=== PATIENT | male | born 1965 | race Caucasian/White ===

== ENCOUNTER 2018-07-08 13:51 | Day surgery (SDC) | payer OTHER, MEDICARE ==
[2018-07-05 08:41] LABS: BASOPHILS # (AUTO) 0.1 X10'3 (0-0.2); EOSINOPHILS # (AUTO) 0.2 X10'3 (0-0.9); EOSINOPHILS % (AUTO) 2.4 % (0-6); HEMATOCRIT 43.2 % (42.0-52.0); HEMOGLOBIN 14.8 g/dl (14.0-17.9); LYMPHOCYTES # (AUTO) 1.6 X10'3 (1.1-4.8); MEAN CORPUSCULAR HEMOGLOBIN 31.2 PG (27.0-31.0); MEAN CORPUSCULAR HGB CONC 34.3 g/dL (33.0-36.5); MEAN CORPUSCULAR VOLUME 91.1 FL (78-98); MEAN PLATELET VOLUME 6.6 FL (7.4-10.4); MONOCYTES # (AUTO) 0.6 X10'3 (0-0.9); NEUTROPHILS # (AUTO) 4.5 X10'3 (1.8-7.7); NEUTROPHILS % (AUTO) 65.6 % (42-75); PLATELET COUNT 191 X10'3 (140-440); RED BLOOD COUNT 4.74 X10'6 (4.70-6.10); RED CELL DISTRIBUTION WIDTH 13.8 % (11.5-14.5); WHITE BLOOD COUNT 6.9 X10'3 (4.5-11.0)
[2018-07-05 08:58] LABS: ALBUMIN 3.6 G/DL (3.4-5.0); ANION GAP 10 (8-16); BLOOD UREA NITROGEN 21 MG/DL (7-18); BUN/CREATININE RATIO 24.4 (5.4-32.0); CALCIUM 9.3 MG/DL (8.5-10.1); CHLORIDE 108 MMOL/L (99-107); CHOLESTEROL 100 MG/DL (0-200); CREATININE 0.86 MG/DL (0.60-1.10); GLUCOSE 109 MG/DL (70-104); HDL CHOLESTEROL 33 MG/DL (35-60); LDL CHOLESTEROL 56 MG/DL (50-100); PARTIAL THROMBOPLASTIN TIME 26 SECONDS (22-32); POTASSIUM 3.8 MMOL/L (3.5-5.1); SODIUM 143 MMOL/L (135-145); TOTAL CARBON DIOXIDE 24.8 MMOL/L (24-32); TRIGLYCERIDES 96 MG/DL (20-135); eGFR > 90 ML/MIN
[2018-07-08] VITALS (7 sets, daily range): BP systolic 125–136; BP diastolic 72–89
[~2018-07-08] VITALS: Ht 185.4 cm; Wt 135.9 kg
[2018-07-08] MEDS ORDERED: diphenhydrAMINE 25mg capsule PO ONE (14:25)
[2018-07-08] MEDS ORDERED: normal saline 1000ml 1,000 ML IV SCH (14:25)
[2018-07-08] MEDS ORDERED: LORazepam 0.5 MG tablet PO ONE (14:25)
[2018-07-08] MEDS ORDERED: ATOR40TA71 PO (18:31)
[2018-07-08] MEDS ORDERED: ASPI-1071 PO (18:31)
[2018-07-08] MEDS ORDERED: CHOL100046 PO (18:31)
[2018-07-08] MEDS ORDERED: LAMO200T2 PO (18:31)
[2018-07-08] MEDS ORDERED: OMEG-166 PO (18:31)
[2018-07-08] MEDS ORDERED: FLUO20CA22 PO (18:31)
[2018-07-08] MEDS ORDERED: ARIP20TA4 PO (18:43)
[2018-07-08] MEDS ORDERED: OMEP40CA37 PO (18:43)
[2018-07-08] MEDS ORDERED: SUCR1TAB PO (18:43)
[2018-07-08] MEDS ORDERED: LISI-604 PO (18:43)
[2018-07-08] MEDS ORDERED: TOPI25TA15 PO (18:43)
[2018-07-08] MEDS ORDERED: midazolam 2 mg/2 ml injection ONE (18:44)
[2018-07-08] MEDS ORDERED: iohexol 350MG/ML 100ml bottle IV ONE (18:45)
[2018-07-08] MEDS ORDERED: LIDOcaine 1% (10mg/ml)w/preservative injection 20ml MDV ONE (18:45)
[2018-07-08] MEDS ORDERED: fentaNYL/PF 50MCG/1 ML 2ML syringe ONE (18:45)
[2018-07-08] MEDS ORDERED: ondansetron/PF 4mg/2ml inj IV PRN (19:50)
[2018-07-08] MEDS ORDERED: HYDROcodone/acetaminophen 5mg/325mg tablet PO PRN (19:50)
[2018-07-08] MEDS ORDERED: OXAZEpam 15mg capsule PO PRN (19:50)
[2018-07-08] MEDS ORDERED: proCHLORperazine 10 MG/2 ml inj IV PRN (19:50)
[2018-07-08] MEDS ORDERED: HYDROcodone/acetaminophen 10/325mg tab PO PRN (19:50)
== END 2018-07-08 21:15 | disposition home or self-care (01) ==
LOC: SSTAY O 13:51
PROVIDERS: ATTEND Internal Medicine Interventional Cardiology
DX: I25.10 Atherosclerotic heart disease of native coronary artery without angina pectoris (principal); G47.33 Obstructive sleep apnea (adult) (pediatric); F31.9 Bipolar disorder, unspecified; I10 Essential (primary) hypertension
CPT/HCPCS: 36415; 80048; 80061; 85025; 85610; 85730; 93458; 99152; A6257; J1644; J2001; J2250; J3010; J7030; Q0163; Q9967; A4620; C1760; C1769

== ENCOUNTER 2019-08-27 09:37 | Emergency (ER) | payer OTHER, MEDICARE ==
[~2019-08-27] VITALS: Ht 185.4 cm; Wt 145.4 kg
[~2019-08-27 09:37] MED LIST: ARIP20TA4 PO; ASPI-1071 PO; ATOR40TA71 PO; CHOL100046 PO; FLUO-213 PO; LAMO200T2 PO; LISI-604 PO; OMEG-166 PO; OMEP40CA13 PO; SUCR1TAB PO; TOPI25TA15 PO
[2019-08-27 10:35] LABS: ALANINE AMINOTRANSFERASE 35 U/L (12-78); ALBUMIN 3.5 G/DL (3.4-5.0); ALKALINE PHOSPHATASE 125 IU/L (46-116); ANION GAP 8 (8-16); ASPARTATE AMINO TRANSFERASE 19 U/L (10-37); BILIRUBIN,TOTAL 0.5 MG/DL (0.1-1.0); BLOOD UREA NITROGEN 19 MG/DL (7-18); BUN/CREATININE RATIO 19.4 (5.4-32.0); CHLORIDE 110 MMOL/L (99-107); CREATININE 0.98 MG/DL (0.60-1.10); GLUCOSE 100 MG/DL (70-104); POTASSIUM 3.9 MMOL/L (3.5-5.1); SODIUM 144 MMOL/L (135-145); TOTAL CARBON DIOXIDE 26.2 MMOL/L (24-32); TOTAL PROTEIN 7.1 G/DL (6.4-8.2); eGFR 79 ML/MIN
[2019-08-27 11:18] LABS: BASOPHILS # (AUTO) 0.1 X10'3 (0-0.2); BASOPHILS % (AUTO) 0.8 % (0-1); EOSINOPHILS # (AUTO) 0.1 X10'3 (0-0.9); EOSINOPHILS % (AUTO) 2.2 % (0-6); HEMATOCRIT 42.1 % (42.0-52.0); HEMOGLOBIN 14.5 g/dl (14.0-17.9); LYMPHOCYTES # (AUTO) 2.1 X10'3 (1.1-4.8); LYMPHOCYTES % (AUTO) 34.3 % (21-51); MEAN CORPUSCULAR HEMOGLOBIN 31.7 PG (27.0-31.0); MEAN CORPUSCULAR HGB CONC 34.5 g/dL (33.0-36.5); MEAN CORPUSCULAR VOLUME 91.9 FL (78-98); MEAN PLATELET VOLUME 6.6 FL (7.4-10.4); MONOCYTES # (AUTO) 0.6 X10'3 (0-0.9); MONOCYTES % (AUTO) 9.3 % (2-12); NEUTROPHILS # (AUTO) 3.3 X10'3 (1.8-7.7); NEUTROPHILS % (AUTO) 53.4 % (42-75); PLATELET COUNT 195 X10'3 (140-440); RED BLOOD COUNT 4.58 X10'6 (4.70-6.10); RED CELL DISTRIBUTION WIDTH 14.1 % (11.5-14.5); WHITE BLOOD COUNT 6.1 X10'3 (4.5-11.0)
[2019-08-27 12:10] VITALS: BP 137/85
== END 2019-08-27 12:13 | disposition home or self-care (01) ==
LOC: ER 09:37
DX: R07.9 Chest pain, unspecified (principal); I10 Essential (primary) hypertension; F31.9 Bipolar disorder, unspecified; Z72.89 Other problems related to lifestyle; Z79.82 Long term (current) use of aspirin; Z79.899 Other long term (current) drug therapy
CPT/HCPCS: 36415; 71045; 80053; 83880; 84484; 85025; 85379; 93005; 99285

== ENCOUNTER 2020-04-05 01:46 | Observation (INO) | payer OTHER, MEDICARE ==
[~2020-04-05] VITALS: Ht 185.4 cm; Wt 136.4 kg
--- NOTE | 2020-04-05 02:02 | NUR ---
Stroke alert page sent out per MD order - pt stated to MD that headache was the worst he has ever felt in his life. Pt reports pain to be 8/10 and generalized all over his head.
[2020-04-05] MEDS ORDERED: ondansetron/PF 4mg/2ml inj IV ONE (02:15)
[2020-04-05 02:21] LABS: BASOPHILS # (AUTO) 0.1 X10'3 (0-0.2); BASOPHILS % (AUTO) 1.1 % (0-1); EOSINOPHILS # (AUTO) 0.2 X10'3 (0-0.9); EOSINOPHILS % (AUTO) 2.7 % (0-6); HEMATOCRIT 41.8 % (42.0-52.0); HEMOGLOBIN 14.5 g/dl (14.0-17.9); LYMPHOCYTES # (AUTO) 2.2 X10'3 (1.1-4.8); LYMPHOCYTES % (AUTO) 32.2 % (21-51); MEAN CORPUSCULAR HEMOGLOBIN 32.4 PG (27.0-31.0); MEAN CORPUSCULAR HGB CONC 34.6 g/dL (33.0-36.5); MEAN CORPUSCULAR VOLUME 93.5 FL (78-98); MEAN PLATELET VOLUME 6.6 FL (7.4-10.4); MONOCYTES # (AUTO) 0.6 X10'3 (0-0.9); MONOCYTES % (AUTO) 8.8 % (2-12); NEUTROPHILS # (AUTO) 3.7 X10'3 (1.8-7.7); NEUTROPHILS % (AUTO) 55.2 % (42-75); PLATELET COUNT 201 X10'3 (140-440); RED BLOOD COUNT 4.47 X10'6 (4.70-6.10); RED CELL DISTRIBUTION WIDTH 13.9 % (11.5-14.5); WHITE BLOOD COUNT 6.8 X10'3 (4.5-11.0)
[2020-04-05 02:39] LABS: ALANINE AMINOTRANSFERASE 33 U/L (12-78); ALBUMIN 3.6 G/DL (3.4-5.0); ALBUMIN/GLOBULIN RATIO 1.1 (1.1-1.5); ALKALINE PHOSPHATASE 112 IU/L (46-116); ANION GAP 6 (8-16); ASPARTATE AMINO TRANSFERASE 13 U/L (10-37); BILIRUBIN,TOTAL 0.3 MG/DL (0.1-1.0); BLOOD UREA NITROGEN 21 MG/DL (7-18); BUN/CREATININE RATIO 20.4 (5.4-32.0); CALCIUM 9.3 MG/DL (8.5-10.1); CHLORIDE 109 MMOL/L (99-107); CREATININE 1.03 MG/DL (0.60-1.10); GLUCOSE 99 MG/DL (70-104); PARTIAL THROMBOPLASTIN TIME 26 SECONDS (22-32); POTASSIUM 3.8 MMOL/L (3.5-5.1); SODIUM 141 MMOL/L (135-145); TOTAL CARBON DIOXIDE 25.9 MMOL/L (24-32); TOTAL PROTEIN 6.9 G/DL (6.4-8.2); eGFR 74 ML/MIN
[2020-04-05] MEDS ORDERED: magnesium 2GM in 50ml NS 50 ML IV PRN (03:10)
[2020-04-05] MEDS ORDERED: magnesium 4gm in 100ml NS 100 ML IV PRN (03:10)
[2020-04-05] MEDS ORDERED: potassium Cl 20 mEq SR tablet PO PRN ×2 (03:10)
[2020-04-05] MEDS ORDERED: potassium Cl 40MEQ/1/2NS 520ml 520 ML IV PRN ×2 (03:10)
[2020-04-05] MEDS ORDERED: ondansetron/PF 4mg/2ml inj IV PRN (03:10)
[2020-04-05] MEDS ORDERED: magnesium hydroxide 30ml (MOM) UD suspension PO PRN (03:10)
[2020-04-05] MEDS ORDERED: acetaminophen 325mg tablet PO PRN (03:10)
[2020-04-05] MEDS ORDERED: mag hydrox/Alum hydrox/simeth 30ml oral suspension PO PRN (03:10)
[2020-04-05] MEDS ORDERED: LAMO100T65 PO (03:23)
[2020-04-05] MEDS ORDERED: iohexol 350MG/ML 100ml bottle IV ONE ×3 (03:49→09:35)
[2020-04-05] MEDS: normal saline 1000ml 1,000 ML IV SCH ×3 (04:20→20:17)
--- NOTE | 2020-04-05 05:48 | NUR ---
Pt's cell # Ledy
[2020-04-05] MEDS ORDERED: aspirin 325mg tablet, delayed-release (Ecotrin) PO ONE (05:50)
[2020-04-05 07:46] LABS: CLARITY,URINE CLEAR (Clear); COLOR,URINE YELLOW (Yellow); GLUCOSE, URINE NEGATIVE (Neg); KETONES,URINE NEGATIVE (Neg); LEUKOCYTE ESTERASE ,URINE NEGATIVE (Neg); NITRITES, URINE NEGATIVE (Neg); OCCULT BLOOD,URINE NEGATIVE (Neg); PH,URINE 5.5 (4.8-8.0); PROTEIN,URINE NEGATIVE (Neg); UROBILINOGEN,URINE 0.2 E.U/dL (0.2-1.0)
[2020-04-05 07:51] LABS: UA COLLECTION TYPE CLN CATCH MIDSTREAM
[2020-04-05 07:55] LABS: CHOL/HDL RATIO 5.4 (0.00-4.99); CHOLESTEROL 177 MG/DL (0-200); HDL CHOLESTEROL 33 MG/DL (35-60); LDL CHOLESTEROL 121 MG/DL (50-100); TRIGLYCERIDES 204 MG/DL (20-135)
[2020-04-05] MEDS: aspirin 81mg tablet.DR PO SCH (08:00)
[2020-04-05] MEDS: K and/or MAG REPLACEMENT MC SCH ×2 (08:01→20:00)
--- NOTE | 2020-04-05 08:58 | NUR ---
DR RUSSELL AWARE THAT THE PATIENT WILL NOT FIT INTO THE MRI MACHINE ACCORDING TO STEREO COMPILER DIANA
--- NOTE | 2020-04-05 09:22 | NUR ---
pt ate his breakfast finished 100% and then went to restroom in wheelchair to defecate ,pt came back to bed laying in bed in rgt lat position and started vomiting undigested food total vol 300 ml,pt medicated with prn zofran 4 mg iv once. production gear cutter nahum at bedside to take the pt to cta ,disconnected the pt from maintence fluid.pt to ct scan now.
--- NOTE | 2020-04-05 09:50 | NUR ---
called dr barnett regarding pt covid test as yong joshua is concerned about the covid like symps ,as per dr barnett she is not authorized to test the pt tell rn to contact dr dwyer if they want to rule out .also contact stroke nurse .notified yong joshua .
--- NOTE | 2020-04-05 10:18 | NUR ---
contacted heather stroke nurse as per dr barnett orders.
[2020-04-05 10:55] VITALS: BP 136/86
[2020-04-05] MEDS ORDERED: TOPI25TA49 PO (10:55)
--- NOTE | 2020-04-05 11:36 | NUR ---
PAGER ID: [phone] MESSAGE: [id number] Rashoff Not appropriate, wont fit MRI but NEEDS ONE [phone]
--- NOTE | 2020-04-05 12:33 | NUR ---
PAGER ID: [phone] MESSAGE: [id number] Rashoff CTA report in computer, [facility] wants to speak with you personally
--- NOTE | 2020-04-05 14:22 | NUR ---
PAGER ID: [phone] MESSAGE: [id number] Rashoff speech remains slurred, actively vomiting & too early for Zofran. Option please [id number]
[2020-04-05] MEDS ORDERED: proCHLORperazine 10 MG/2 ml inj IV ONE (14:40)
[2020-04-05 15:10] VITALS: BP 150/82
[2020-04-05] MEDS: lisinopril 5mg tablet PO SCH (15:40)
--- NOTE | 2020-04-05 16:57 | NUR ---
Spoke with , feels patient does have mild slurring of words and some forgetfulness.
[2020-04-05] MEDS: sucralfate 1 gm tablet PO SCH ×2 (17:48→20:12)
[2020-04-05 18:00] VITALS: BP 138/80
--- NOTE | 2020-04-05 18:20 | NUR ---
Problems reprioritized. Patient report given, questions answered & plan of care reviewed with Aurelia Deleon
[2020-04-05] MEDS: LAMOTRIGINE 100 MG PO SCH (20:00)
[2020-04-05] MEDS: topiramate 25mg tablet PO SCH (20:12)
[2020-04-05] MEDS: meclizine 12.5mg tablet PO PRN (20:12)
[2020-04-05] MEDS ORDERED: lamoTRIgine 100mg tablet PO SCH (21:00)
[2020-04-05] MEDS ORDERED: aspirin 81mg tablet.DR PO SCH (21:00)
[2020-04-05] MEDS ORDERED: FLUoxetine 20mg capsule PO SCH (21:00)
[2020-04-05 22:00] VITALS: BP 140/88
[2020-04-06 02:00] VITALS: BP 130/78
[2020-04-06 06:00] VITALS: BP 132/88
--- NOTE | 2020-04-06 06:38 | NUR ---
Report given to Adrienne SEQUEIRA.
--- NOTE | 2020-04-06 06:41 | NUR ---
Patient in room PCU 3012A. I have received report from HUA RAMIRES and had the opportunity to ask questions and assume patient care.
[2020-04-06] MEDS ORDERED: pantoprazole 40mg Tablet.DR PO SCH (07:30)
[2020-04-06 07:54] LABS: ALANINE AMINOTRANSFERASE 32 U/L (12-78); ALBUMIN 3.3 G/DL (3.4-5.0); ALBUMIN/GLOBULIN RATIO 1.1 (1.1-1.5); ALKALINE PHOSPHATASE 89 IU/L (46-116); ANION GAP 9 (8-16); ASPARTATE AMINO TRANSFERASE 26 U/L (10-37); BILIRUBIN,TOTAL 0.7 MG/DL (0.1-1.0); BLOOD UREA NITROGEN 18 MG/DL (7-18); BUN/CREATININE RATIO 22.2 (5.4-32.0); CALCIUM 8.7 MG/DL (8.5-10.1); CHLORIDE 110 MMOL/L (99-107); CREATININE 0.81 MG/DL (0.60-1.10); GLUCOSE 97 MG/DL (70-104); POTASSIUM 3.9 MMOL/L (3.5-5.1); SODIUM 144 MMOL/L (135-145); TOTAL CARBON DIOXIDE 25.2 MMOL/L (24-32); TOTAL PROTEIN 6.4 G/DL (6.4-8.2); eGFR > 90 ML/MIN
[2020-04-06] MEDS: sucralfate 1 gm tablet PO SCH ×2 (07:58→13:00)
[2020-04-06] MEDS: aspirin 81mg tablet.DR PO SCH (07:58)
[2020-04-06] MEDS: topiramate 25mg tablet PO SCH (07:58)
[2020-04-06] MEDS: lisinopril 5mg tablet PO SCH (07:59)
[2020-04-06] MEDS: meclizine 12.5mg tablet PO PRN (08:00)
[2020-04-06] MEDS: LAMOTRIGINE 100 MG PO SCH (08:00)
[2020-04-06] MEDS: K and/or MAG REPLACEMENT MC SCH (08:00)
[2020-04-06] MEDS: normal saline 1000ml 1,000 ML IV SCH (08:02)
[2020-04-06] MEDS ORDERED: LAMO25TA5 PO ×2 (09:22)
[2020-04-06] MEDS ORDERED: LAMO100T PO (09:23)
[2020-04-06] MEDS ORDERED: lamoTRIgine 25mg tablet PO ONE (09:30)
[2020-04-06] MEDS ORDERED: ASPI-1071 PO (10:26)
[2020-04-06] MEDS ORDERED: ATOR40TA PO (10:27)
[2020-04-06 10:30] LABS: BASOPHILS % (AUTO) 0.6 % (0-1); EOSINOPHILS # (AUTO) 0.1 X10'3 (0-0.9); EOSINOPHILS % (AUTO) 1.9 % (0-6); HEMATOCRIT 42.8 % (42.0-52.0); LYMPHOCYTES # (AUTO) 1.7 X10'3 (1.1-4.8); LYMPHOCYTES % (AUTO) 23.8 % (21-51); MEAN CORPUSCULAR HGB CONC 34.9 g/dL (33.0-36.5); MEAN CORPUSCULAR VOLUME 94.4 FL (78-98); MEAN PLATELET VOLUME 7.1 FL (7.4-10.4); MONOCYTES # (AUTO) 0.6 X10'3 (0-0.9); MONOCYTES % (AUTO) 8.1 % (2-12); NEUTROPHILS # (AUTO) 4.8 X10'3 (1.8-7.7); NEUTROPHILS % (AUTO) 65.6 % (42-75); PLATELET COUNT 214 X10'3 (140-440); RED BLOOD COUNT 4.54 X10'6 (4.70-6.10); WHITE BLOOD COUNT 7.3 X10'3 (4.5-11.0)
[2020-04-06 11:00] VITALS: BP 139/78
--- NOTE | 2020-04-06 11:21 | NUR ---
TALKED WITH PTS , STATES SLURRING OF WORDS ARE BETTER THIS MORNING
[2020-04-06] MEDS ORDERED: lamoTRIgine 25mg tablet PO SCH (13:00)
--- NOTE | 2020-04-06 14:21 | NUR ---
Page Sent PAGER ID: [phone] MESSAGE: [id number] ELVIRA CERVANTES...PTS MRI NEGATIVE FOR ACUTE OR SUBACUTE INFARCT. NO MASSES OR MIDLINE SHIFT. WILL PROCEED WITH DC.
--- NOTE | 2020-04-06 15:31 | NUR ---
DC INSTRUCTIONS GIVEN TO PT, QUESTIONS ANSWERED. IV REMOVED, CANULA INTACT, NO COMPLICATIONS. TELE MONITOR REMOVED AND RETURNED TO TELE BOX. PT DRESSED SELF AND GATHERED BELONGINGS. WHEELED DOWN TO PRIVATE VEHICLE IN STABLE CONDITION.
[2020-04-06] MEDS ORDERED: lamoTRIgine 100mg tablet PO SCH (21:00)
[2020-04-07] MEDS ORDERED: lamoTRIgine 25mg tablet PO SCH (08:00)
== END 2020-04-06 15:05 | disposition home or self-care (01) ==
LOC: ER 01:47 → ED HOLD 03:07 → PCU 3S 10:19
PROVIDERS: ADMIT Family Medicine; ATTEND Internal Medicine
DX: G45.9 Transient cerebral ischemic attack, unspecified (principal); I10 Essential (primary) hypertension; E78.5 Hyperlipidemia, unspecified; F31.9 Bipolar disorder, unspecified; E78.00 Pure hypercholesterolemia, unspecified; Z79.82 Long term (current) use of aspirin; Z79.899 Other long term (current) drug therapy; Z87.891 Personal history of nicotine dependence
CPT/HCPCS: 36415; 70450; 70496; 70498; 70551; 71045; 80053; 80061; 81003; 83735; 85025; 85610; 85651; 85730; 93005; 93306; 96361; 96374; 96375; 97162; 99285; G0378; J0780; J2405; J7030; J8597; Q9967

== ENCOUNTER 2021-11-10 09:24 | Outpatient (CLI) | payer OTHER ==
[2021-11-10] VITALS (17 sets, daily range): BP systolic 137–161; BP diastolic 81–99
[~2021-11-10 09:24] MED LIST changes: +ARIP15TA19 PO; +ARIP20TA21 PO; -ARIP20TA4 PO; -ATOR40TA71 PO; +ATOR40TA72 PO; +COR3.125T PO; +FLUO-167 PO; -FLUO-213 PO; +LAMO200T10 PO; -LAMO200T2 PO; -LISI-604 PO; +LISI10TA27 PO; -OMEP40CA13 PO; +OMEP40CA21 PO; +TICA90TA PO; -TOPI25TA15 PO; +TOPI25TA49 PO
== END 2021-11-10 23:59 | disposition home or self-care (01) ==
LOC: CARD DIAG 09:24
PROVIDERS: ATTEND Internal Medicine Interventional Cardiology
DX: R55 Syncope and collapse (principal)
CPT/HCPCS: 93660

== ENCOUNTER 2022-01-09 17:02 | Emergency (ER) | payer OTHER, MEDICARE ==
[~2022-01-09] VITALS: Ht 185.4 cm; Wt 140.9 kg
[2022-01-09] MEDS ORDERED: morphine 4 MG/ML inj SYRINge IV ONE (17:30)
[2022-01-09] MEDS ORDERED: ringers solution, lactated 500ml IV solution IV ONE (17:30)
[2022-01-09] MEDS ORDERED: ondansetron/PF 4mg/2ml inj IV ONE (17:30)
[2022-01-09 18:15] LABS: APTT 27 SECONDS (22-32); BASOPHILS # (AUTO) 0.1 X10'3 (0-0.2); BASOPHILS % (AUTO) 1.4 % (0-1); EOSINOPHILS # (AUTO) 0.3 X10'3 (0-0.9); EOSINOPHILS % (AUTO) 3.3 % (0-6); HEMATOCRIT 40.7 % (42.0-52.0); HEMOGLOBIN 13.9 g/dl (14.0-17.9); LYMPHOCYTES # (AUTO) 2.6 X10'3 (1.1-4.8); LYMPHOCYTES % (AUTO) 27.8 % (21-51); MEAN CORPUSCULAR HEMOGLOBIN 32.3 PG (27.0-31.0); MEAN CORPUSCULAR HGB CONC 34.3 g/dL (33.0-36.5); MEAN CORPUSCULAR VOLUME 94.4 FL (78-98); MEAN PLATELET VOLUME 7.1 FL (7.4-10.4); MONOCYTES # (AUTO) 0.8 X10'3 (0-0.9); MONOCYTES % (AUTO) 8.2 % (2-12); NEUTROPHILS # (AUTO) 5.5 X10'3 (1.8-7.7); NEUTROPHILS % (AUTO) 59.3 % (42-75); PLATELET COUNT 191 X10'3 (140-440); RED BLOOD COUNT 4.31 X10'6 (4.70-6.10); RED CELL DISTRIBUTION WIDTH 14.4 % (11.5-14.5); WHITE BLOOD COUNT 9.2 X10'3 (4.5-11.0)
[2022-01-09 18:27] LABS: ALANINE AMINOTRANSFERASE 31 U/L (12-78); ALBUMIN 3.6 G/DL (3.4-5.0); ALBUMIN/GLOBULIN RATIO 1.2 (1.1-1.5); ALKALINE PHOSPHATASE 99 IU/L (46-116); ANION GAP 7 (8-16); ASPARTATE AMINO TRANSFERASE 20 U/L (10-37); BILIRUBIN,TOTAL 0.9 MG/DL (0.1-1.0); BLOOD UREA NITROGEN 20 MG/DL (7-18); BUN/CREATININE RATIO 23.3 (5.4-32.0); CALCIUM 9.1 MG/DL (8.5-10.1); CHLORIDE 109 MMOL/L (99-107); CREATININE 0.86 MG/DL (0.60-1.10); GLUCOSE 88 MG/DL (70-104); POTASSIUM 3.4 MMOL/L (3.5-5.1); SODIUM 145 MMOL/L (135-145); TOTAL CARBON DIOXIDE 29.3 MMOL/L (24-32); TOTAL PROTEIN 6.5 G/DL (6.4-8.2); eGFR > 90 ML/MIN
[2022-01-09 18:29] LABS: MAGNESIUM 1.7 MG/DL (1.5-2.4)
[2022-01-09] MEDS ORDERED: POTASSIUM BICARB 20meq eff tab 20 MEQ TABLET.EFF PO ONE (18:40)
[2022-01-09 20:04] VITALS: BP 145/79
== END 2022-01-09 20:06 | disposition home or self-care (01) ==
LOC: ER 17:02
DX: R07.89 Other chest pain (principal); R06.02 Shortness of breath; R20.0 Anesthesia of skin; I10 Essential (primary) hypertension; F31.9 Bipolar disorder, unspecified; Z98.890 Other specified postprocedural states; Z72.89 Other problems related to lifestyle; Z79.82 Long term (current) use of aspirin; Z79.899 Other long term (current) drug therapy
CPT/HCPCS: 36415; 71045; 80053; 83735; 83880; 84484; 85025; 85610; 85730; 93005; 96374; 96375; 99285; J2270; J2405; J7120

== ENCOUNTER 2022-08-29 16:40 | Emergency (ER) | payer OTHER, MEDICARE ==
[~2022-08-29] VITALS: Ht 182.9 cm; Wt 142.3 kg
[2022-08-29 16:50] VITALS: BP 149/85
[2022-08-29 17:14] LABS: BASOPHILS # (AUTO) 0.1 X10'3 (0-0.2); BASOPHILS % (AUTO) 1.1 % (0-1); EOSINOPHILS # (AUTO) 0.4 X10'3 (0-0.9); EOSINOPHILS % (AUTO) 4.6 % (0-6); HEMATOCRIT 39.9 % (42.0-52.0); HEMOGLOBIN 13.8 g/dl (14.0-17.9); LYMPHOCYTES # (AUTO) 2.5 X10'3 (1.1-4.8); LYMPHOCYTES % (AUTO) 30.5 % (21-51); MEAN CORPUSCULAR HEMOGLOBIN 32.2 PG (27.0-31.0); MEAN CORPUSCULAR HGB CONC 34.5 g/dL (33.0-36.5); MEAN CORPUSCULAR VOLUME 93.2 FL (78-98); MEAN PLATELET VOLUME 6.4 FL (7.4-10.4); MONOCYTES # (AUTO) 0.5 X10'3 (0-0.9); MONOCYTES % (AUTO) 6.1 % (2-12); NEUTROPHILS # (AUTO) 4.7 X10'3 (1.8-7.7); NEUTROPHILS % (AUTO) 57.7 % (42-75); PLATELET COUNT 203 X10'3 (140-440); RED BLOOD COUNT 4.28 X10'6 (4.70-6.10); RED CELL DISTRIBUTION WIDTH 13.9 % (11.5-14.5); WHITE BLOOD COUNT 8.1 X10'3 (4.5-11.0)
[2022-08-29 17:25] LABS: ALANINE AMINOTRANSFERASE 47 U/L (12-78); ALBUMIN 3.7 G/DL (3.4-5.0); ALBUMIN/GLOBULIN RATIO 1.3 (1.1-1.5); ALKALINE PHOSPHATASE 119 IU/L (46-116); ANION GAP 7 (8-16); ASPARTATE AMINO TRANSFERASE 26 U/L (10-37); BILIRUBIN,TOTAL 0.5 MG/DL (0.1-1.0); BLOOD UREA NITROGEN 19 MG/DL (7-18); BUN/CREATININE RATIO 20.2 (10.0-20.0); CALCIUM 9.2 MG/DL (8.5-10.1); CHLORIDE 109 MMOL/L (99-107); CREATININE 0.94 MG/DL (0.60-1.10); GLUCOSE 88 MG/DL (70-104); POTASSIUM 3.4 MMOL/L (3.5-5.1); SODIUM 144 MMOL/L (135-145); TOTAL CARBON DIOXIDE 27.9 MMOL/L (24-32); TOTAL PROTEIN 6.6 G/DL (6.4-8.2); eGFR 82 ML/MIN
[2022-08-29 18:54] LABS: D-DIMER < 0.19 MG/L FEU (0-0.50)
[2022-08-29] MEDS ORDERED: iohexol 350MG/ML 100ml bottle IV ONE (19:48)
--- NOTE | 2022-08-29 20:13 | NUR ---
ct called for procedure
--- NOTE | 2022-08-29 21:17 | NUR ---
iv dc'd pt being discharged dressing applied
== END 2022-08-29 21:18 | disposition home or self-care (01) ==
LOC: ER 16:41
DX: R06.00 Dyspnea, unspecified (principal); R07.9 Chest pain, unspecified; R06.02 Shortness of breath; R60.0 Localized edema; I11.9 Hypertensive heart disease without heart failure; F31.9 Bipolar disorder, unspecified; Z79.899 Other long term (current) drug therapy
CPT/HCPCS: 36415; 71045; 71275; 80053; 83880; 84484; 85025; 85379; 93005; 99285; J3490; Q9967